=== PATIENT | male | born 1940 ===

== ENCOUNTER 2018-01-23 17:34 | Outpatient (REF) | payer MEDICARE, OTHER, SELFPAY ==
[2018-01-23 21:18] LABS: Anion Gap 9.1 mmol/L (3-11); BUN 17 mg/dL (7-18); CO2 28.9 mmol/L (21.0-32.0); CREATININE 0.82 mg/dL (0.70-1.30); Calcium 9.3 mg/dL (8.5-10.1); Chloride 102 mmol/L (98-107); Cholesterol 117 mg/dL (50-200); Glucose 91 mg/dL (70-100); HDL Cholesterol 34 mg/dL (40-60); LDL CHOLESTEROL 68 mg/dL (<100); Sodium 140 mmol/L (136-145); Triglyceride 152 mg/dL (30-150)
== END 2018-01-23 17:54 ==
LOC: NCHCN 17:34
PROVIDERS: PCP Internal Medicine; Visit Provider Internal Medicine
DX: I20.8 Other forms of angina pectoris (principal); I10 Essential (primary) hypertension; M54.5 Low back pain
CPT/HCPCS: 80048; 80061; 83721